=== PATIENT | male | born 1945 | race Caucasian/White ===

== ENCOUNTER 2020-10-10 18:50 | Emergency (ER) | payer OTHER ==
[~2020-10-10] VITALS: Ht 160 cm; Wt 63.5 kg
--- NOTE | 2020-10-10 19:24 | NUR ---
Dr. Thornton at bedside for MSE.
[2020-10-10] MEDS ORDERED: LIDOCAINE 1%-EPI 1:100,000 20 ML VIAL IJ ONE (19:30)
--- NOTE | 2020-10-10 19:40 | NUR ---
Pt out of ER for CT.
[2020-10-10 19:54] LABS: HEMATOCRIT 34.9 % (36.7-47.1); MEAN CORPUSCULAR HEMOGLOBIN 26.3 uug (23.8-33.4); MEAN CORPUSCULAR VOLUME 81.3 fL (73.0-96.2); PLATELET COUNT (AUTO) 142 K/uL (152-348)
--- NOTE | 2020-10-10 20:00 | NUR ---
Pt back to ER from CT.
[2020-10-10 20:03] LABS: ALANINE AMINOTRANSFERASE 18 U/L (16-63); ALKALINE PHOSPHATASE 85 U/L (50-136); ASPARTATE AMINOTRANSFERASE 16 U/L (15-37); BILIRUBIN,DIRECT 0.1 mg/dL (0.0-0.2); BILIRUBIN,TOTAL 0.4 mg/dL (0.2-1.0); CARBON DIOXIDE 23 mmol/L (21-32); CHLORIDE 101 mmol/L (98-107); GLUCOSE 99 mg/dL (74-106); POTASSIUM 3.9 mmol/L (3.5-5.1); TOTAL PROTEIN, SERUM 7.6 g/dL (6.4-8.2); UREA NITROGEN, BLOOD 31 mg/dL (7-18)
--- NOTE | 2020-10-10 20:59 | NUR ---
Called [facility], spoke to Johana who will paged Dr Veras to call back and speak to Dr palacios.
--- NOTE | 2020-10-10 21:13 | NUR ---
Dr. Thornton speaking with Dr. Veras of [facility].
--- NOTE | 2020-10-10 23:56 | NUR ---
Received call back from [facility], spoke with Hector, with transfer information. Patient is going to [facility], Room 5112, Tele, Accepting MD is Dr. Raghavendra [place], number to report to is , eta of [facility] ambulance is [id number].
--- NOTE | 2020-10-11 00:09 | NUR ---
Report given to Jennifer ELAM [facility].
--- NOTE | 2020-10-11 00:48 | NUR ---
[facility] ambulance arrived to ER to transport patient to [facility]. Report and documentation given to EMT.
== END 2020-10-11 00:50 | disposition short-term general hospital (02) ==
LOC: ER 18:50
DX: S01.81XA Laceration without foreign body of other part of head, initial encounter (principal); S01.01XA Laceration without foreign body of scalp, initial encounter; W01.0XXA Fall on same level from slipping, tripping and stumbling without subsequent striking against object, initial encounter; Y93.89 Activity, other specified; Y92.013 Bedroom of single-family (private) house as the place of occurrence of the external cause; I45.10 Unspecified right bundle-branch block; I67.2 Cerebral atherosclerosis; Z94.4 Liver transplant status; Z20.822 Contact with and (suspected) exposure to COVID-19
CPT/HCPCS: 36415; 70030-TC; 70450; 71045; 85025; 85730; 93005; A4217; A4663